=== PATIENT | female | born 1960 | race Caucasian/White ===

== ENCOUNTER 2018-04-09 23:43 | Inpatient (IN) | payer MEDICAID ==
[2018-04-10] MEDS: NITROGLYCERIN 2% 1 GM OINT PKT TD (00:38)
[2018-04-10] MEDS: ASPIRIN 325 MG TAB PO (00:38)
[2018-04-10 00:43] LABS: ADD MAN DIFF? NO
[2018-04-10 00:50] LABS: BASOPHIL # 0.1 10^3/ul (0.0-0.1); BASOPHILS % 0.7 % (0.0-2.0); EOSINOPHILS # 0.2 10^3/ul (0.0-0.5); EOSINOPHILS % 2.3 % (0.0-7.0); HEMATOCRIT 42.7 % (37.0-47.0); HEMOGLOBIN 14.3 g/dl (12.0-16.0); LYMPHOCYTES # 3.9 10^3/ul (0.8-2.9); LYMPHOCYTES % 40.1 % (15.0-51.0); MEAN CORPUSCULAR HEMOGLOBIN 29.1 pg (29.0-33.0); MEAN CORPUSCULAR HGB CONC 33.5 g/dl (32.0-37.0); MEAN PLATELET VOLUME 10.1 fl (7.4-10.4); MONOCYTE # 0.6 10^3/ul (0.3-0.9); MONOCYTES % 5.8 % (0.0-11.0); NEUTROPHIL # 4.9 10^3/ul (1.6-7.5); PLATELET COUNT 274 10^3/UL (140-415); RED BLOOD COUNT 4.91 10^6/ul (4.20-5.40); RED CELL DISTRIBUTION WIDTH 12.3 % (11.5-14.5)
[2018-04-10 00:50] LABS: WHITE BLOOD COUNT 9.7 10^3/ul (4.8-10.8)
[2018-04-10 01:10] LABS: INR 0.93; PROTIME 12.5 Sec (11.9-14.9)
[2018-04-10 01:11] LABS: PARTIAL THROMBOPLASTIN TIME 29.2 Sec (25.0-35.0)
[2018-04-10 01:28] LABS: ALANINE AMINOTRANSFERASE 39 IU/L (13-69); ALBUMIN 4.3 g/dl (3.3-4.9); ALBUMIN/GLOBULIN RATIO 1.19; ALKALINE PHOSPHATASE 99 IU/L (42-121); ANION GAP 17 (8-16); ASPARTATE AMINO TRANSFERASE 46 IU/L (15-46); BILIRUBIN,INDIRECT 0.6 mg/dl (0-1.1); BILIRUBIN,TOTAL 0.6 mg/dl (0.2-1.3); BLOOD UREA NITROGEN 15 mg/dl (7-20); CALCIUM 9.2 mg/dl (8.4-10.2); CARBON DIOXIDE 26 mmol/L (21-31); CHLORIDE 102 mmol/L (97-110); CREATININE 0.58 mg/dl (0.44-1.00); GLUCOSE 107 mg/dl (70-220); LIPASE 150 U/L (23-300); POTASSIUM 4.5 mmol/L (3.5-5.1); SODIUM 140 mmol/L (135-144); TOTAL PROTEIN 7.9 g/dl (6.1-8.1)
[2018-04-10 01:35] LABS: B-TYPE NATRIURETIC PEPTIDE 101 PG/ML (0-125)
[2018-04-10 02:14] LABS: TROPONIN-I 0.204 ng/ml (0.000-0.120)
[2018-04-10] MEDS: ENOXAPARIN 100 MG/ML SYG SC (02:32)
[2018-04-10] MEDS ORDERED: morphine 2 MG INJ IV ×2 (04:30→13:30)
[2018-04-10] MEDS: ACETAMINOPHEN 325 MG TAB PO ×2 (04:46→19:35)
[2018-04-10 06:22] LABS: ADD MAN DIFF? NO
[2018-04-10 06:35] LABS: WHITE BLOOD COUNT 10.9 10^3/ul (4.8-10.8)
[2018-04-10 06:35] LABS: BASOPHIL # 0.1 10^3/ul (0.0-0.1); BASOPHILS % 0.5 % (0.0-2.0); EOSINOPHILS # 0.1 10^3/ul (0.0-0.5); EOSINOPHILS % 0.8 % (0.0-7.0); HEMOGLOBIN 13.5 g/dl (12.0-16.0); LYMPHOCYTES # 1.9 10^3/ul (0.8-2.9); LYMPHOCYTES % 17.9 % (15.0-51.0); MEAN CORPUSCULAR HEMOGLOBIN 29.6 pg (29.0-33.0); MEAN CORPUSCULAR HGB CONC 34.6 g/dl (32.0-37.0); MEAN CORPUSCULAR VOLUME 85.5 fl (82.0-101.0); MEAN PLATELET VOLUME 9.9 fl (7.4-10.4); MONOCYTE # 0.4 10^3/ul (0.3-0.9); MONOCYTES % 4.1 % (0.0-11.0); NEUTROPHIL # 8.3 10^3/ul (1.6-7.5); NEUTROPHILS % 76.3 % (39.0-77.0); PLATELET COUNT 244 10^3/UL (140-415); RED BLOOD COUNT 4.56 10^6/ul (4.20-5.40); RED CELL DISTRIBUTION WIDTH 12.1 % (11.5-14.5)
[2018-04-10 07:04] LABS: CREATINE KINASE 54 IU/L (23-200)
[2018-04-10 07:07] LABS: ALANINE AMINOTRANSFERASE 46 IU/L (13-69); ALBUMIN 3.9 g/dl (3.3-4.9); ALBUMIN/GLOBULIN RATIO 1.25; ALKALINE PHOSPHATASE 95 IU/L (42-121); ANION GAP 19 (8-16); ASPARTATE AMINO TRANSFERASE 28 IU/L (15-46); BILIRUBIN,INDIRECT 0.7 mg/dl (0-1.1); BILIRUBIN,TOTAL 0.7 mg/dl (0.2-1.3); BLOOD UREA NITROGEN 14 mg/dl (7-20); CALCIUM 9.1 mg/dl (8.4-10.2); CARBON DIOXIDE 26 mmol/L (21-31); CHLORIDE 98 mmol/L (97-110); CHOL/HDL RATIO 3.5 RATIO; CHOLESTEROL 168 mg/dl (100-200); CREATININE 0.51 mg/dl (0.44-1.00); GLUCOSE 137 mg/dl (70-220); HDL CHOLESTEROL 48 mg/dl (35-98); LDL CHOLESTEROL,CALCULATED 91 mg/dl; POTASSIUM 3.8 mmol/L (3.5-5.1); SODIUM 139 mmol/L (135-144); TRIGLYCERIDES 144 mg/dl (0-149)
[2018-04-10 07:30] LABS: THYROID STIMULATING HORMONE 0.741 MIU/L (0.465-4.680)
[2018-04-10 07:48] LABS: CK INDEX 2.7; CK-MB 1.45 ng/ml (0.0-2.4)
[2018-04-10 07:49] LABS: TROPONIN-I 0.229 ng/ml (0.000-0.120)
[2018-04-10] MEDS: ASPIRIN 81 MG TAB PO (08:28)
[2018-04-10] MEDS: METOPROLOL 25 MG TAB PO ×2 (09:03→20:43)
[2018-04-10] MEDS: HEPARIN 5,000 UNIT/0.5 ML VIAL SC ×2 (09:45→20:50)
[2018-04-10] MEDS: ONDANSETRON 4 MG INJ IV ×3 (10:39→19:35)
[2018-04-10] MEDS ORDERED: IODIXANOL LOCM 100 ML BTL ×3 (11:31→12:53)
[2018-04-10] MEDS ORDERED: FENTAnyl 50 MCG/ML VIAL (11:31)
[2018-04-10] MEDS ORDERED: MIDAZOLAM 1 MG/ML 2 ML INJ (11:31)
[2018-04-10] MEDS ORDERED: LIDOCAINE 1% (MDV) 20 ML INJ (11:31)
[2018-04-10] MEDS ORDERED: HEPARIN 1000 UNITS/ML 10 ML INJ (11:31)
[2018-04-10] MEDS ORDERED: VERAPAMIL 5 MG INJ (11:32)
[2018-04-10] MEDS ORDERED: NITROGLYCERIN (IC) 100 MCG/ML INJ (11:32)
[2018-04-10] MEDS ORDERED: ASPIRIN 325 MG TAB (12:31)
[2018-04-10] MEDS ORDERED: CLOPIDOGREL 300 MG TAB (12:31)
[2018-04-10] MEDS ORDERED: BIVALIRUDIN 250MG /NS 50 ML 50 ML IVPB (12:37)
[2018-04-10] MEDS ORDERED: IOHEXOL 350MG/ML 50 ML BTL (12:53)
[2018-04-10] MEDS ORDERED: AL HYDROX/MG HYDROX/SIMETH 30 ML CUP PO (13:30)
[2018-04-10] MEDS: SOD CHLORIDE 0.9% 1,000 ML IV (13:39)
[2018-04-10] MEDS: OXYCODONE/ACETAMINOPHEN (5/325) TAB PO (14:06)
[2018-04-10 14:17] LABS: CREATINE KINASE 48 IU/L (23-200)
[2018-04-10 14:30] LABS: CK INDEX 2.9
[2018-04-10 14:31] LABS: TROPONIN-I 0.302 ng/ml (0.000-0.120)
[2018-04-10] MEDS: ATORVASTATIN 20 MG TAB PO (20:44)
[2018-04-11 05:13] LABS: ADD MAN DIFF? NO
[2018-04-11 05:28] LABS: BASOPHILS % 0.3 % (0.0-2.0); EOSINOPHILS # 0.1 10^3/ul (0.0-0.5); EOSINOPHILS % 0.7 % (0.0-7.0); HEMATOCRIT 42.7 % (37.0-47.0); HEMOGLOBIN 14.2 g/dl (12.0-16.0); LYMPHOCYTES # 2.6 10^3/ul (0.8-2.9); LYMPHOCYTES % 25.2 % (15.0-51.0); MEAN CORPUSCULAR HEMOGLOBIN 28.8 pg (29.0-33.0); MEAN CORPUSCULAR HGB CONC 33.3 g/dl (32.0-37.0); MEAN CORPUSCULAR VOLUME 86.6 fl (82.0-101.0); MEAN PLATELET VOLUME 9.7 fl (7.4-10.4); MONOCYTE # 0.8 10^3/ul (0.3-0.9); MONOCYTES % 7.3 % (0.0-11.0); NEUTROPHIL # 6.9 10^3/ul (1.6-7.5); NEUTROPHILS % 66.2 % (39.0-77.0); PLATELET COUNT 267 10^3/UL (140-415); RED BLOOD COUNT 4.93 10^6/ul (4.20-5.40); RED CELL DISTRIBUTION WIDTH 11.9 % (11.5-14.5)
[2018-04-11 05:28] LABS: WHITE BLOOD COUNT 10.3 10^3/ul (4.8-10.8)
[2018-04-11 05:54] LABS: ANION GAP 16 (8-16); BLOOD UREA NITROGEN 11 mg/dl (7-20); CALCIUM 9.2 mg/dl (8.4-10.2); CARBON DIOXIDE 29 mmol/L (21-31); CHLORIDE 101 mmol/L (97-110); CHOLESTEROL 170 mg/dl (100-200); CREATINE KINASE 56 IU/L (23-200); CREATININE 0.61 mg/dl (0.44-1.00); GLUCOSE 109 mg/dl (70-220); HDL CHOLESTEROL 42 mg/dl (35-98); LDL CHOLESTEROL,CALCULATED 86 mg/dl; POTASSIUM 4.2 mmol/L (3.5-5.1); SODIUM 142 mmol/L (135-144); TRIGLYCERIDES 210 mg/dl (0-149)
[2018-04-11 05:59] LABS: CK INDEX 3.6
[2018-04-11 06:14] LABS: TROPONIN-I 0.276 ng/ml (0.000-0.120)
[2018-04-11] MEDS: CLOPIDOGREL 75 MG TAB PO (08:29)
[2018-04-11] MEDS: METOPROLOL 25 MG TAB PO ×2 (08:29→20:24)
[2018-04-11] MEDS: ASPIRIN (EC) 81 MG TAB PO (08:29)
[2018-04-11] MEDS: HEPARIN 5,000 UNIT/0.5 ML VIAL SC ×2 (08:38→20:26)
[2018-04-11] MEDS: ACETAMINOPHEN 325 MG TAB PO ×2 (13:12→19:47)
[2018-04-11] MEDS: ATORVASTATIN 20 MG TAB PO (20:24)
[2018-04-11] MEDS: OXYCODONE/ACETAMINOPHEN (5/325) TAB PO (20:31)
[2018-04-12] MEDS: ASPIRIN (EC) 81 MG TAB PO (08:20)
[2018-04-12] MEDS: METOPROLOL 25 MG TAB PO (08:20)
[2018-04-12] MEDS: CLOPIDOGREL 75 MG TAB PO (08:20)
[2018-04-12] MEDS: HEPARIN 5,000 UNIT/0.5 ML VIAL SC (08:37)
[2018-04-12] MEDS ORDERED: morphine LIQ (10 MG/5 ML) CUP PO (14:10)
[2018-04-12 14:37] LABS: TROPONIN-I 0.343 ng/ml (0.000-0.120)
== END 2018-04-12 16:45 | disposition home or self-care (01) | DRG 247 ==
LOC: E/R 23:43 → TEL 04-10 02:25 → ICU 04-10 13:34
PROC: 027034Z Dilation of Coronary Artery, One Artery with Drug-eluting Intraluminal Device, Percutaneous Approach (ICD-10-PCS; principal; 2018-04-10 11:43)
PROC: 4A023N7 Measurement of Cardiac Sampling and Pressure, Left Heart, Percutaneous Approach (ICD-10-PCS; 2018-04-10 11:43)
PROC: B211YZZ Fluoroscopy of Multiple Coronary Arteries using Other Contrast (ICD-10-PCS; 2018-04-10 11:43)
PROC: B215YZZ Fluoroscopy of Left Heart using Other Contrast (ICD-10-PCS; 2018-04-10 11:43)
DX: I21.4 Non-ST elevation (NSTEMI) myocardial infarction (principal); I25.10 Atherosclerotic heart disease of native coronary artery without angina pectoris; E78.5 Hyperlipidemia, unspecified; I10 Essential (primary) hypertension; R51 Headache
CPT/HCPCS: 36415; 71045; 80048; 80053; 80061; 82550; 82553; 83036; 83690; 83880; 84443; 84484; 85025; 85610; 85730; 87081; 93005; 93306; 93458; 96372; 99285-25

== ENCOUNTER 2018-10-17 03:37 | Emergency (ER) | payer MEDICAID ==
[2018-10-17 05:04] LABS: ADD MAN DIFF? NO
[2018-10-17 05:05] LABS: BASOPHIL # 0.1 10^3/ul (0.0-0.1); BASOPHILS % 0.5 % (0.0-2.0); EOSINOPHILS # 0.1 10^3/ul (0.0-0.5); HEMATOCRIT 38.7 % (37.0-47.0); HEMOGLOBIN 13.2 g/dl (12.0-16.0); LYMPHOCYTES # 1.1 10^3/ul (0.8-2.9); MEAN CORPUSCULAR HEMOGLOBIN 29.1 pg (29.0-33.0); MEAN CORPUSCULAR HGB CONC 34.1 g/dl (32.0-37.0); MEAN CORPUSCULAR VOLUME 85.2 fl (82.0-101.0); MEAN PLATELET VOLUME 9.9 fl (7.4-10.4); MONOCYTE # 0.6 10^3/ul (0.3-0.9); MONOCYTES % 5.6 % (0.0-11.0); NEUTROPHIL # 8.2 10^3/ul (1.6-7.5); NEUTROPHILS % 81.5 % (39.0-77.0); PLATELET COUNT 226 10^3/UL (140-415); RED BLOOD COUNT 4.54 10^6/ul (4.20-5.40); RED CELL DISTRIBUTION WIDTH 11.7 % (11.5-14.5)
[2018-10-17] MEDS: SOD CHLORIDE 0.9% 1,000 ML IV (05:16)
[2018-10-17] MEDS: KETOROLAC 30 MG INJ IV (05:17)
[2018-10-17] MEDS: PROCHLORPERAZINE 10 MG INJ IV (05:17)
[2018-10-17] MEDS: DIPHENHYDRAMINE 50 MG INJ IV (05:17)
[2018-10-17 05:25] LABS: ALANINE AMINOTRANSFERASE 31 IU/L (13-69); ALBUMIN 4.1 g/dl (3.3-4.9); ALBUMIN/GLOBULIN RATIO 1.28; ALKALINE PHOSPHATASE 94 IU/L (42-121); ANION GAP 7 (5-13); ASPARTATE AMINO TRANSFERASE 22 IU/L (15-46); BILIRUBIN,INDIRECT 0.7 mg/dl (0-1.1); BILIRUBIN,TOTAL 0.7 mg/dl (0.2-1.3); BLOOD UREA NITROGEN 14 mg/dl (7-20); CALCIUM 9.2 mg/dl (8.4-10.2); CARBON DIOXIDE 29 mmol/L (21-31); CHLORIDE 104 mmol/L (97-110); CREATININE 0.53 mg/dl (0.44-1.00); Estimated GFR > 60 mL/min (>60); GLUCOSE 139 mg/dl (70-220); LIPASE 64 U/L (23-300); POTASSIUM 3.8 mmol/L (3.5-5.1); SODIUM 140 mmol/L (135-144); TOTAL PROTEIN 7.3 g/dl (6.1-8.1)
[2018-10-17 05:26] LABS: INR 0.97
[2018-10-17 05:27] LABS: PARTIAL THROMBOPLASTIN TIME 25.5 Sec (23.0-35.0)
[2018-10-17 05:29] LABS: URINE PH (Dip) POC 8.5 (5.0-8.5)
[2018-10-17 05:29] LABS: URINE BLOOD (Dip) POC Trace-lysed (NEGATIVE); URINE GLUCOSE (Dip) POC Negative (NEGATIVE); URINE KETONES (Dip) POC Negative (NEGATIVE); URINE LEUKOCYTE EST (Dip) POC Negative (NEGATIVE); URINE NITRITE (Dip) POC Negative (NEGATIVE); URINE TOTAL PROTEIN POC Negative (NEGATIVE)
== END 2018-10-17 06:11 | disposition home or self-care (01) ==
LOC: E/R 03:37
DX: G44.89 Other headache syndrome (principal); R10.84 Generalized abdominal pain; Z79.01 Long term (current) use of anticoagulants; Z79.82 Long term (current) use of aspirin
CPT/HCPCS: 36415; 80053; 81003; 83690; 85025; 85610; 85730; 96374; 96375; 99284-25

== ENCOUNTER 2019-01-03 15:24 | Emergency (ER) | payer MEDICAID ==
[2019-01-03] MEDS: SOD CHLORIDE 0.9% 1,000 ML IV (16:22)
[2019-01-03 16:23] LABS: ADD MAN DIFF? NO
[2019-01-03] MEDS: morphine 4 MG/ML VIAL IV (16:23)
[2019-01-03] MEDS: ONDANSETRON 4 MG INJ IV (16:23)
[2019-01-03 16:26] LABS: BASOPHILS % 0.2 % (0.0-2.0); EOSINOPHILS % 0.4 % (0.0-7.0); HEMATOCRIT 41.6 % (37.0-47.0); HEMOGLOBIN 14.1 g/dl (12.0-16.0); LYMPHOCYTES % 10.2 % (15.0-51.0); MEAN CORPUSCULAR HEMOGLOBIN 29.4 pg (29.0-33.0); MEAN CORPUSCULAR HGB CONC 33.9 g/dl (32.0-37.0); MEAN CORPUSCULAR VOLUME 86.8 fl (82.0-101.0); MEAN PLATELET VOLUME 9.5 fl (7.4-10.4); MONOCYTE # 0.3 10^3/ul (0.3-0.9); MONOCYTES % 3.4 % (0.0-11.0); NEUTROPHIL # 8.6 10^3/ul (1.6-7.5); NEUTROPHILS % 85.3 % (39.0-77.0); PLATELET COUNT 247 10^3/UL (140-415); RED BLOOD COUNT 4.79 10^6/ul (4.20-5.40); RED CELL DISTRIBUTION WIDTH 12.4 % (11.5-14.5)
[2019-01-03 16:26] LABS: WHITE BLOOD COUNT 10.1 10^3/ul (4.8-10.8)
[2019-01-03 16:45] LABS: ALANINE AMINOTRANSFERASE 46 IU/L (13-69); ALBUMIN 4.2 g/dl (3.3-4.9); ALBUMIN/GLOBULIN RATIO 1.31; ALKALINE PHOSPHATASE 111 IU/L (42-121); ANION GAP 10 (5-13); ASPARTATE AMINO TRANSFERASE 27 IU/L (15-46); BILIRUBIN,INDIRECT 0.8 mg/dl (0-1.1); BILIRUBIN,TOTAL 0.8 mg/dl (0.2-1.3); BLOOD UREA NITROGEN 9 mg/dl (7-20); CALCIUM 9.2 mg/dl (8.4-10.2); CARBON DIOXIDE 28 mmol/L (21-31); CHLORIDE 104 mmol/L (97-110); CREATININE 0.57 mg/dl (0.44-1.00); Estimated GFR > 60 mL/min (>60); GLUCOSE 143 mg/dl (70-220); LIPASE 49 U/L (23-300); POTASSIUM 4.4 mmol/L (3.5-5.1); SODIUM 142 mmol/L (135-144); TOTAL PROTEIN 7.4 g/dl (6.1-8.1)
[2019-01-03] MEDS: IOHEXOL 300MG/ML 150 ML BTL (16:53)
[2019-01-03] MEDS: SOD CHLORIDE 0.9% 100 ML (16:53)
[2019-01-03 16:57] LABS: TROPONIN-I < 0.012 ng/ml (0.000-0.120)
[2019-01-03 17:11] LABS: INR 0.92; PROTIME 12.5 Sec (11.9-14.9)
[2019-01-03 17:12] LABS: PARTIAL THROMBOPLASTIN TIME 26.4 Sec (23.0-35.0)
[2019-01-03 19:06] LABS: ADD UMIC YES; UR ASCORBIC ACID NEGATIVE (NEGATIVE); UR BILIRUBIN (Dip) NEGATIVE (NEGATIVE); UR BLOOD (Dip) 1+ mg/dL (NEGATIVE); UR CLARITY CLEAR (CLEAR); UR COLOR STRAW (YELLOW); UR GLUCOSE (Dip) 1+ mg/dL (NEGATIVE); UR KETONES (Dip) TRACE mg/dL (NEGATIVE); UR LEUKOCYTE ESTERASE (Dip) NEGATIVE Leu/ul (NEGATIVE); UR NITRITE (Dip) NEGATIVE (NEGATIVE); UR RBC 4 /HPF (0-5); UR SPECIFIC GRAVITY (Dip) 1.021 (1.003-1.030); UR TOTAL PROTEIN (Dip) NEGATIVE (NEGATIVE); UR UROBILINOGEN (Dip) NEGATIVE (NEGATIVE); UR WBC 2 /HPF (0-5)
== END 2019-01-03 19:58 | disposition home or self-care (01) ==
LOC: E/R 15:24
DX: K52.82 Eosinophilic colitis (principal); R11.10 Vomiting, unspecified; R40.2142 Coma scale, eyes open, spontaneous, at arrival to emergency department; R40.2362 Coma scale, best motor response, obeys commands, at arrival to emergency department; R40.2252 Coma scale, best verbal response, oriented, at arrival to emergency department; I10 Essential (primary) hypertension; I25.10 Atherosclerotic heart disease of native coronary artery without angina pectoris; I25.2 Old myocardial infarction; Z79.82 Long term (current) use of aspirin; Z79.01 Long term (current) use of anticoagulants
CPT/HCPCS: 74177; 80053; 81001; 83690; 84484; 85025; 85610; 85730; 87086; 93005; 96361; 96374; 96375; 99285-25